=== PATIENT | female | born 1980 | race Caucasian/White ===

== ENCOUNTER 2018-12-01 19:24 | Emergency (ER) | payer BC ==
[~2018-12-01] VITALS: Ht 162.6 cm; Wt 63.6 kg
[2018-12-01 19:26] VITALS: TEMP 98.4
[2018-12-01] MEDS ORDERED: ASPIRIN 81M81 MG/TA2 PO (19:49)
[2018-12-01] MEDS ORDERED: NORCO 325 MG-51 TAB PO (20:58)
[2018-12-01 21:00] VITALS: BP 121/78; PULSE 90
== END 2018-12-01 21:20 | disposition home or self-care (01) ==
LOC: COL.ER 19:24
DX: S09.90XA Unspecified injury of head, initial encounter (principal); S52.122A Displaced fracture of head of left radius, initial encounter for closed fracture; R40.2412 Glasgow coma scale score 13-15, at arrival to emergency department; V00.181A Fall from other rolling-type pedestrian conveyance, initial encounter; Z98.890 Other specified postprocedural states; Z79.82 Long term (current) use of aspirin
CPT/HCPCS: J1885; J2405; J7030; Q4050

== ENCOUNTER 2020-08-01 13:06 | Emergency (ER) | payer BC ==
[~2020-08-01] VITALS: Ht 162.6 cm; Wt 65.9 kg
[~2020-08-01 13:06] MED LIST: ASPIRIN 81M81 MG/TA2 PO; NORCO 325 MG-51 TAB PO
[2020-08-01] MEDS ORDERED: NORCO 325 MG-51 TAB PO (15:09)
[2020-08-01] MEDS ORDERED: VALIUM 10MG10 MG/TAB PO (15:09)
[2020-08-01 15:14] VITALS: BP 136/64; PULSE 72; TEMP 97.6
== END 2020-08-01 15:14 | disposition home or self-care (01) ==
LOC: COL.ER 13:06
DX: M54.16 Radiculopathy, lumbar region (principal); Z90.710 Acquired absence of both cervix and uterus; Z79.82 Long term (current) use of aspirin
CPT/HCPCS: J1885; J3360

== ENCOUNTER 2020-08-04 07:11 | Emergency (ER) | payer BC ==
[~2020-08-04] VITALS: Ht 162.6 cm; Wt 65.9 kg
[~2020-08-04 07:11] MED LIST changes: +VALIUM 10MG10 MG/TAB PO
[2020-08-04 07:16] VITALS: TEMP 99
[2020-08-04] MEDS ORDERED: ESTRADERM0.05 MG/24 PO (08:23)
[2020-08-04 09:16] LABS: COLLECTION METHOD CLEAN CATCH
[2020-08-04 09:38] LABS: BASO % 0.3 % (0.0-2.0); EOS % 0.6 % (0-4.0); GRAN # 5.1 (1.4-6.5); GRAN % 82.3 % (42.2-75.2); HEMATOCRIT 38.2 % (37.0-47.0); HEMOGLOBIN 12.7 g/dl (12.5-16.0); LYMPH # 0.9 (1.2-3.4); LYMPH % 14.3 % (20.0-51.0); MEAN CELL VOLUME 95 fl (80.0-100.0); MEAN CORPUSCULAR HEMOGLOBIN 32 pg (27.0-31.0); MEAN CORPUSCULAR HGB CONC 33 g/dl (33.0-37.0); MEAN PLATELET VOLUME 10.1 fl (7.4-10.4); MONO # 0.1 (0.1-0.6); MONO % 2.3 % (1.7-9.3); PLATELET COUNT 202 K/mm3 (130-400); RED BLOOD COUNT 4.03 M/mm3 (4.10-5.30); REDCELL DISTRIBUTION WIDTH-CV 11.8 % (11.5-14.5)
[2020-08-04 09:43] LABS: ALBUMIN 4.3 gm/dL (3.5-5.0); BILIRUBIN,TOTAL 0.5 mg/dL (0.0-1.0); C-REACTIVE PROTEIN 1.2 mg/dL (0.0-0.9); CALCIUM 8.9 mg/dL (8.4-10.2); CREATININE, serum 0.81 (0.52-1.25); TOTAL PROTEIN 7.4 gm/dL (6.4-8.2)
[2020-08-04 09:44] LABS: MUCOUS Present /lpf; PH 7 (5-8); SQUAMOUS EPITHELIAL 0-2 /hpf; URINE APPEARANCE Clear; URINE BACTERIA None Seen /hpf; URINE BILIRUBIN Negative (NEGATIVE); URINE BLOOD Negative (NEGATIVE); URINE COLOR Yellow; URINE GLUCOSE Negative (NEGATIVE); URINE KETONE Negative (NEGATIVE); URINE LEUKOCYTE ESTERASE Negative (NEGATIVE); URINE NITRATE Negative (NEGATIVE); URINE PROTEIN(semi-quant) Negative (NEGATIVE); URINE UROBILINOGEN Negative (NEGATIVE)
[2020-08-04 17:14] VITALS: BP 119/70; PULSE 81
[2020-08-04] MEDS ORDERED: VALIUM 2MG T2 MG/TAB PO (17:18)
== END 2020-08-04 17:14 | disposition home or self-care (01) ==
LOC: COL.ER 07:11
PROVIDERS: Family Medicine
DX: M54.16 Radiculopathy, lumbar region (principal); M51.26 Other intervertebral disc displacement, lumbar region; Z90.710 Acquired absence of both cervix and uterus; Z88.6 Allergy status to analgesic agent; Z79.82 Long term (current) use of aspirin
CPT/HCPCS: J1100; J1170; J1885; J2360; J2405; J3010; J3301; J3360

== ENCOUNTER 2020-08-05 02:10 | Emergency (ER) | payer BC ==
[~2020-08-05] VITALS: Ht 162.6 cm; Wt 65.9 kg
[~2020-08-05 02:10] MED LIST changes: +ESTRADERM0.05 MG/24 PO; +VALIUM 2MG T2 MG/TAB PO
[2020-08-05 02:14] VITALS: TEMP 96.6
[2020-08-05 04:16] LABS: BASO % 0.1 % (0.0-2.0); EOS % 0.1 % (0-4.0); GRAN # 5.3 (1.4-6.5); GRAN % 79.8 % (42.2-75.2); HEMOGLOBIN 11.5 g/dl (12.5-16.0); LYMPH # 1.1 (1.2-3.4); MEAN CELL VOLUME 94 fl (80.0-100.0); MEAN CORPUSCULAR HEMOGLOBIN 31 pg (27.0-31.0); MEAN CORPUSCULAR HGB CONC 33 g/dl (33.0-37.0); MEAN PLATELET VOLUME 10.1 fl (7.4-10.4); MONO # 0.3 (0.1-0.6); MONO % 3.9 % (1.7-9.3); PLATELET COUNT 189 K/mm3 (130-400); RED BLOOD COUNT 3.72 M/mm3 (4.10-5.30); REDCELL DISTRIBUTION WIDTH-CV 11.7 % (11.5-14.5)
[2020-08-05 04:19] LABS: HEMATOCRIT 34.8 % (37.0-47.0)
[2020-08-05 04:23] LABS: PROTHROMBIN TIME 11.5 SECONDS (9.7-12.8)
[2020-08-05 04:25] LABS: PARTIAL THROMBOPLASTIN TIME 26.8 SECONDS (26.0-37.0)
[2020-08-05 04:27] LABS: BILIRUBIN,TOTAL 0.5 mg/dL (0.0-1.0); CALCIUM 8.3 mg/dL (8.4-10.2); CREATININE, serum 0.76 (0.52-1.25); POTASSIUM 4.5 mmol/L (3.4-5.0); TOTAL PROTEIN 6.7 gm/dL (6.4-8.2)
[2020-08-05 05:32] VITALS: BP 117/85; PULSE 68
== END 2020-08-05 05:45 | disposition short-term general hospital (02) ==
LOC: COL.ER 02:10
PROVIDERS: Emergency Medicine
DX: M54.16 Radiculopathy, lumbar region (principal); M51.26 Other intervertebral disc displacement, lumbar region; Z88.6 Allergy status to analgesic agent; Z79.82 Long term (current) use of aspirin
CPT/HCPCS: J1100; J1170; J1885; J2405; J3360; J7030

== ENCOUNTER → 2020-12-30 | Outpatient (CLI) | payer BC | LOC: COL.RAD 07:29 | DX: M54.16 Radiculopathy, lumbar region (principal); Z98.890 Other specified postprocedural states | CPT/HCPCS: A9585 ==

== ENCOUNTER → 2021-02-04 | Outpatient (CLI) | payer BC | LOC: MC.RAD 07:27 | DX: Z12.31 Encounter for screening mammogram for malignant neoplasm of breast (principal) ==

== ENCOUNTER → 2021-09-29 | Outpatient (CLI) | payer BC | LOC: COL.RAD 07:43 | DX: N83.201 Unspecified ovarian cyst, right side (principal); K76.9 Liver disease, unspecified; K63.89 Other specified diseases of intestine; K31.89 Other diseases of stomach and duodenum | CPT/HCPCS: Q9967 ==

== ENCOUNTER 2021-11-11 09:35 | Day surgery (SDC) | payer BC ==
[~2021-11-11] VITALS: Ht 162.6 cm; Wt 67.5 kg
[2021-11-11] MEDS ORDERED: MULTI VITAMINS1 TAB PO (10:27)
[2021-11-11] MEDS ORDERED: WELLBUTRIN 75MG75 MG PO (10:27)
[2021-11-11 11:35] VITALS: BP 116/84; PULSE 67; TEMP 98.1
[2021-11-11 11:45] VITALS: BP 116/74; PULSE 61
[2021-11-11 12:00] VITALS: BP 118/87; PULSE 66
[2021-11-11 12:15] VITALS: BP 120/73; PULSE 76
--- NOTE | 2021-11-11 12:40 | NUR ---
Pt returned to [facility] post procedure. VS remain stable-see flowsheet. Tolerated a muffin and water. IV removed, catheter tip intact and pressure dressing applied. Dr Vega was in to visit post. DC teaching completed, pt and pts spouse verbalized understanding. Pt taken via wheelchair to private vehicle for dc home with spouse driving.
[2021-11-11 16:02] VITALS: BP 109/72; PULSE 72; TEMP 98.4
== END 2021-11-11 12:40 | disposition home or self-care (01) ==
LOC: SDCO 09:35
DX: K92.1 Melena (principal); K59.00 Constipation, unspecified; K64.4 Residual hemorrhoidal skin tags
CPT/HCPCS: J2405; J2704; J7030

== ENCOUNTER → 2022-02-14 | Outpatient (CLI) | payer BC ==
[~2022-02-14] MED LIST changes: +MULTI VITAMINS1 TAB PO; +WELLBUTRIN 75MG75 MG PO
== END ==
LOC: MC.RAD 16:30
DX: Z12.31 Encounter for screening mammogram for malignant neoplasm of breast (principal)

== ENCOUNTER → 2022-03-30 | Outpatient (CLI) | payer BC | LOC: COL.RAD 12:36 | DX: N83.201 Unspecified ovarian cyst, right side (principal); Z90.710 Acquired absence of both cervix and uterus; Z90.721 Acquired absence of ovaries, unilateral ==

== ENCOUNTER → 2024-02-08 | Outpatient (CLI) | payer BC | LOC: MC.RAD 07:56 | DX: Z00.00 Encounter for general adult medical examination without abnormal findings (principal); Z12.31 Encounter for screening mammogram for malignant neoplasm of breast ==